=== PATIENT | male | born 1965 | race Caucasian/White ===

== ENCOUNTER 2016-06-18 19:29 | Emergency (ER) | payer OTHER ==
[2016-06-18] MEDS ORDERED: POVIDONE IODINE 10 % 15 ML UD TOP ONE (19:37)
[2016-06-18 19:44] VITALS: O2SAT 97
--- NOTE | 2016-06-18 19:48 | ED.PDOC ---
History of Present Illness - General Chief Complaint: Upper Extremity Injury Stated Complaint: thumb tip avulsion Time Seen by Provider: 06/18/16 19:32 Source: patient, RN notes reviewed, Vital Signs reviewed Exam Limitations: no limitations - History of Present Illness Initial Comments: patient reports he cut off the pad of his right thumb with a table saw. Occurred: just prior to arrival Pain - Upper Extremity: severe: Hand, right Method of Injury: incised Improving Factors: nothing Worsening Factors: movement Allergies/Adverse Reactions: Allergies NO KNOWN ALLERGY Allergy (Unverified 11/29/14 18:04) Home Medications: Ambulatory Orders Amoxicillin & Pot Clavulanate [Augmentin] 875 mg PO BID #20 tab 06/18/16 Review of Systems - Review of Systems Constitutional: States: no symptoms reported Respiratory: States: no symptoms reported Cardiology: States: no symptoms reported Gastrointestinal/Abdominal: States: no symptoms reported Musculoskeletal: States: see HPI Skin: States: see HPI Neurological: States: no symptoms reported Endocrine: States: no symptoms reported Past Medical History (General) - Patient Medical History Surgical History: no surgical history - Vaccination History Hx Tetanus, Diphtheria Vaccination: Yes - 2014 - Social History Hx Tobacco Use: Yes - Triage Comment ED Triage Comment: right thumb tip/pad avulsed Family Medical History - Family History Father Family History: Unknown Living Status: Unknown Physical Exam - Physical Exam General Appearance: Alert, Comfortable, No apparent distress, Well Developed, Well Groomed, Well Hydrated, Well Nourished Elbow/Forearm Exam: normal inspection, non-tender, no evidence of injury, normal ROM Wrist Exam: normal inspection, non-tender, no evidence of injury, normal ROM Hand Exam: laceration - 2X2.5 cm avulsion of the pad of his right thumb with bone exposed. Neuro/Tendon: normal motor functions, normal tendon functions, responds to pain Mental Status: alert, oriented x 3 Skin Exam: normal color, warm/dry Progress - Progress Progress: 06/18/16 20:[address] Cook - would like dressing and started on Augmentin. Will see him tomorrow in his office in [place]. Departure - Departure Clinical Impression: Avulsion of finger tip Time of Disposition: 20:01 Disposition: Discharge to Home or Self Care Condition: Good Departure Forms: ED Discharge - Pt. Copy, Patient Portal Self Enrollment Instructions: DI for Avulsion Laceration (Not Requiring Sutures) Diet: resume usual diet Referrals: Rachid Cook MD [Referring] - 06/19/16 8:00 am Prescriptions: Amoxicillin & Pot Clavulanate [Augmentin] 875 mg PO BID #20 tab Home Medications: Ambulatory Orders Amoxicillin & Pot Clavulanate [Augmentin] 875 mg PO BID #20 tab 06/18/16 Additional Instructions: Keep dressing in place until follow up with Dr. Cook
[2016-06-18] MEDS ORDERED: AMOXICILLIN & POT CLAVULANATE 875 MG TAB PO ONE (20:00)
[2016-06-18] MEDS ORDERED: HYDROCOD/APAP 7.5/325 (ER DISP) #3 TAB PO ONE (20:05)
[2016-06-18 20:28] VITALS: BP 109/72; TEMP 97.4
== END 2016-06-18 20:26 | disposition home or self-care (01) ==
LOC: ER 19:29
DX: S61.011A Laceration without foreign body of right thumb without damage to nail, initial encounter (principal); Z87.891 Personal history of nicotine dependence; W29.8XXA Contact with other powered hand tools and household machinery, initial encounter